=== PATIENT | female | born 1995 | race Two or more races ===

== ENCOUNTER 2023-01-11 02:40 | Inpatient (IN) | payer OTHER ==
[2023-01-11] VITALS (36 sets, daily range): BP systolic 95–172; BP diastolic 51–90; O2SAT 97–98
[~2023-01-11] VITALS: Ht 170.2 cm; Wt 96.7 kg
[2023-01-11] MEDS ORDERED: PRENTAB9 PO (03:07)
[2023-01-11] MEDS ORDERED: HOME MED LIST COMPLETE! XX SCH (03:15)
[2023-01-11 03:40] LABS: HEMOGLOBIN 11.8 g/dl (12.0-15.5); MEAN CORPUSCULAR HGB CONC 33.7 g/dl (32.0-36.5); MEAN CORPUSCULAR VOLUME 89.1 fl (80.0-96.0); PLATELET COUNT, AUTOMATED 240 10^3/uL (150-450); RED BLOOD COUNT 3.93 10^6/uL (4.00-5.40); WHITE BLOOD COUNT 11.8 10^3/uL (4.0-10.0)
[2023-01-11] MEDS ORDERED: LACTATED RINGER'S 1000 ML IV STA (03:41)
[2023-01-11] MEDS ORDERED: OXYTOCIN DRIP 30 UNITS in IV 1 EA IV PRN ×6 (03:45)
[2023-01-11] MEDS ORDERED: LR 1,000 ML IV SCH (03:45)
[2023-01-11] MEDS ORDERED: TRANEXAMIC ACID INJection 1,000 MG in NS 100 ML IV PRN (03:45)
[2023-01-11] MEDS ORDERED: METHYLERGONOVINE MALEATE 0.2MG/ML 1ML VIAL IM PRN (03:45)
[2023-01-11] MEDS ORDERED: CARBOPROST TROMETHAMINE 250 MCG/ML AMP IM PRN (03:45)
[2023-01-11] MEDS ORDERED: LIDOCAINE 1% MDV 20ML VIAL INFIL PRN (03:45)
[2023-01-11] MEDS ORDERED: OXYTOCIN INJ 10UNITS/ML 1ML VIAL IM PRN (03:45)
[2023-01-11] MEDS ORDERED: ONDANSETRON 4MG 2ML VIAL IV PRN (04:50)
[2023-01-11] MEDS ORDERED: diphenhydrAMINE 50MG/ML VIAL IV PRN (04:50)
[2023-01-11] MEDS ORDERED: NALOXONE INJ 0.4MG/1ML VIAL IV PRN (04:50)
[2023-01-11] MEDS ORDERED: ePHEDrine SULFATE 25 MG/5 ML(5MG/ML) SYRINGE IVP PRN (04:50)
[2023-01-11] MEDS ORDERED: LR 500 ML IV PRN (04:50)
[2023-01-11] MEDS ORDERED: FENTANYL/ROPIVACAINE/NACL BAG 100 ML EPIDURAL SCH (04:50)
[2023-01-11] MEDS ORDERED: EPIDURAL/PCA KEYS XX PRN (04:50)
[2023-01-11 06:05] LABS: URIC ACID 4.9 MG/DL (3.1-7.8)
[2023-01-11 06:07] LABS: LDH LACTATE DEHYDROGENASE 157 U/L (120-246)
[2023-01-11 06:08] LABS: ALT/SGPT 17 U/L (7.0-40); AST/SGOT 15 U/L (<34); BILIRUBIN,TOTAL 0.3 MG/DL (0.3-1.2); CREATININE FOR GFR 0.37 MG/DL (0.55-1.30); GLOMERULAR FILTRATION RATE > 60.0 (>60)
[2023-01-11] MEDS ORDERED: OXYTOCIN DRIP 30 UNITS in IV 1 EA IV SCH ×2 (06:15→09:10)
[2023-01-11 06:16] LABS: TOTAL PROTEIN,RANDOM URINE 15.8 MG/DL (0.0-14.0)
[2023-01-11 06:21] LABS: CREATININE,RANDOM URINE 177.2 MG/DL
[2023-01-11] MEDS: PRENATAL VITAMINS CHEWABLE TABLET PO SCH ×2 (09:00→15:14)
[2023-01-11] MEDS ORDERED: METHYLERGONOVINE MALEATE 0.2 MG TAB PO PRN (09:10)
[2023-01-11] MEDS ORDERED: ACETAMINOPHEN 500 MG TAB PO PRN (09:10)
[2023-01-11] MEDS ORDERED: DOCUSATE SODIUM 100MG CAPSULE PO PRN (09:10)
[2023-01-11] MEDS ORDERED: IBUPROFEN 600MG TAB PO PRN (09:10)
[2023-01-11] MEDS ORDERED: ACETAMINOPHEN TAB 650MG DOSE (2X325MG) PO PRN (09:10)
[2023-01-11] MEDS ORDERED: IBUPROFEN 800 MG TAB PO PRN (09:10)
[2023-01-11] MEDS ORDERED: DIBUCAINE 1% OINTMENT 30GM TOP PRN (09:10)
[2023-01-12 06:00] VITALS: BP 119/58; O2SAT 97
[2023-01-12] MEDS: PRENATAL VITAMINS CHEWABLE TABLET PO SCH (08:48)
[2023-01-12] MEDS ORDERED: INFLUENZA QUADRIVALENT PF VACCINE 0.5ML SYRINGE IM.IMMUN ONE (11:30)
[2023-01-13] MEDS ORDERED: MEASLES,MUMPS,RUBELLA VACCINE INJ (MMR-II) SC.IMMUN ONE (09:00)
== END 2023-01-12 12:29 | disposition home or self-care (01) | DRG 807 ==
LOC: M LDO 02:40 → M LDI 03:21 → M OBS 14:40
PROVIDERS: ADMIT Obstetrics & Gynecology; ATTEND Advanced Practice Midwife
PROC: 10E0XZZ Delivery of Products of Conception, External Approach (ICD-10-PCS; principal; 2023-01-11)
PROC: 10907ZC Drainage of Amniotic Fluid, Therapeutic from Products of Conception, Via Natural or Artificial Opening (ICD-10-PCS; 2023-01-11)
DX: O69.1XX0 Labor and delivery complicated by cord around neck, with compression, not applicable or unspecified (principal); Z37.0 Single live birth; Z3A.39 39 weeks gestation of pregnancy; O77.0 Labor and delivery complicated by meconium in amniotic fluid